=== PATIENT | female | born 1985 | race Caucasian/White ===

== ENCOUNTER 2020-06-16 09:22 | Emergency (ER) | payer BC, SELFPAY ==
--- NOTE | ~2020-06-16 | US_ITS ---
EXAMINATION: US OB <= 14 weeks fetus EXAM DATE: 06/16/2020 10:58 INDICATION: and low back pain. 1st trimester. TECHNIQUE: Pelvic obstetrical transabdominal sonogram was performed by a technologist. There are mu ltiple grayscale and Doppler images available for interpretation. There are no earlier studies of th is gestation for comparison. FINDINGS: Uterus measures 9.3 x 9.0 x 7.3 cm. There is intrauterine gestation sac. pole with heart rate confirmed at 167 beats per minute. The 2.8 cm crown-rump length corresponds to estimated gestational age by ultrasound of 9 weeks 4 days, estimated date of confinement 01/15. Yolk sac is hang ntified. There is no sonographic evidence of subchorionic hemorrhage. The ovaries are not identif ied. Adnexal regions are unremarkable. IMPRESSION: Early live intrauterine gestation. Reviewed, dictated and finalized at location B.
[2020-06-16 09:36] VITALS: BP 142/84; PULSE 96; RESP 18; TEMP 36.3; O2SAT 100
--- NOTE | 2020-06-16 10:21 | ED.BACK ---
HPI - Back Pain/Injury General Chief Complaint: Back Pain/Injury Stated Complaint: Severe back pain - 9wks Time Seen by Provider: 06/16/20 10:06 Source: patient Mode of arrival: ambulatory Limitations: no limitations History of Present Illness HPI Narrative: This is a 35-year-old G2, P1, about 9 weeks by LMP that presents the emergency department for right-sided mid back pain since last night. No known injury or trauma. Reports the pain is constant and sharp in nature. It is worse with movement and relieved with rest. She took Tylenol this morning prior to arrival. She did note some pelvic cramping last night as well. Her OB is Dr. Holloway. She has not seen her yet this . She has been having trouble with morning sickness this . Denies fever, abdominal pain, dysuria, hematuria, or vaginal bleeding. Related Data Home Medications Medication Instructions Recorded Confirmed PNV cmb#95-ferrous fumarate-FA tablet PO 06/16/20 [] ascorbate bikifod-jqggozht-sdl mg PO 06/16/20 [Vit C(ascorb.calcium)(mv-mins)] folic acid 0.8 mg PO DAILY 06/16/20 06/16/20 levothyroxine 06/16/20 Allergies Allergy/AdvReac Type Severity Reaction Status Date / Time sumatriptan Allergy Intermediate Unknown Verified 06/16/20 10:13 Review of Systems Review of Systems: Narrative: CONSTITUTIONAL: Denies fever GASTROINTESTINAL: Reports nausea and vomiting. Denies abdominal pain GENITOURINARY: Denies dysuria or hematuria. MUSCULOSKELETAL: Reports back pain, joint pain, and myalgia. NEUROLOGIC: Denies numbness, or weakness. All systems reviewed & are unremarkable except as noted in HPI and below PMFSH Past Medical History Medical History (Updated 06/16/20 @ 11:50 by Puja Cochran PA-C) History of hypothyroidism Social History Social History (Updated 06/16/20 @ 10:22 by Puja Cochran PA-C) Smoking status: Never smoker Substance use: never Exam Narrative: Exam Narrative: GENERAL: Well-appearing, well-nourished, and in no acute distress. HEAD: Normocephalic, atraumatic. EYES: EOMI. CHEST: Clear to auscultation. No respiratory distress. No wheezes rales or rhonchi HEART: Regular rate and rhythm. No murmur heard. Normal peripheral pulses. ABDOMEN: Soft, nontender, nondistended, normal active bowel sounds. No CVA tenderness BACK: Tender to palpation of right latissimus dorsi musculature EXTREMITIES: Normal range of motion. No edema. SKIN: Warm, dry, no rash. NEURO: No focal deficits. Alert and oriented x3. PSYCH: Normal mood and affect Course Consultations Consultation #1: Spoke with Dr. Holloway about patient and work-up. Patient is to follow-up in clinic. Date: 06/16/20 Time: 11:49 Vital Signs Vital signs: Vital Signs Temperature 97.4 F L 06/16/20 09:36 Pulse Rate 96 06/16/20 09:36 Respiratory Rate 18 06/16/20 09:36 Blood Pressure 142/84 H 06/16/20 09:36 Pulse Oximetry 100 06/16/20 09:36 Temperature 97.4 F L 06/16/20 09:36 Pulse Rate 96 06/16/20 09:36 Respiratory Rate 18 06/16/20 09:36 Blood Pressure 142/84 H 06/16/20 09:36 Pulse Oximetry 100 06/16/20 09:36 MDM - Back Pain/Injury MDM Narrative Medical decision making narrative: Patient presents to the emergency department for right-sided back pain since last night. No known injury or trauma. Patient is tender to palpation of musculature in the area. Pain is worse with movement. It does seem more musculoskeletal in nature. CBC with mild leukocytosis to 10.7. Hemoglobin is normal. Metabolic panel is without acute findings. UA with 1+ leuk esterase, 4-6 white blood cells, and 3+ bacteria. Also with moderate squamous epithelial cells. This will be sent for a culture. Suspect that this is not a clean-catch. ultrasound shows an early live intrauterine gestation. Patient denied any vaginal bleeding or abnormal discharge. Patient was also reporting some trouble with morning sickness. G
[2020-06-16] MEDS: diphenhydrAMINE HCl INJ 50 MG/ML VIAL 25 MG IV PUSH (10:59)
[2020-06-16] MEDS: SODIUM CHLORIDE 0.9% IV 1,000 ML 999 ML IV CONT (10:59)
[2020-06-16] MEDS: METOCLOPRAMIDE HCL INJ 10 MG/2 ML VIAL IV PUSH (11:00)
[2020-06-16 11:04] LABS: Basophils Percent Auto 0.2 % (0.2-1.2); Eosinophils Absolute Auto 0.1 K/mm3 (0-0.3); Hematocrit 37.3 % (37.0-47.0); Hemoglobin 13.4 g/dL (12.0-15.0); Immature Granulocyte Absolute 0.03 K/mm3 (0.00-0.031); Immature Granulocyte Percent A 0.3 % (0-0.5); Lymphocytes Absolute Auto 1.43 K/mm3 (0.9-3.2); Lymphocytes Percent Auto 13.4 % (18.3-44.2); Mean Corpuscular HGB Conc 35.9 g/dl (32-36); Mean Corpuscular Hemoglobin 31.4 pg (26-34); Mean Corpuscular Volume 87.4 fl (80-100); Mean Platelet Volume 10.7 fl (7.4-10.4); Monocytes Absolute Auto 0.7 K/mm3 (0.1-0.6); Monocytes Percent Auto 6.3 % (2.6-8.5); Neutrophils Absolute Auto 8.4 K/mm3 (1.3-6.7); Neutrophils Percent Auto 78.8 % (45.5-73.1); Platelet Count Result 296 k/mm3 (150-375); Red Blood Count 4.27 M/mm3 (4.2-5.4); Red Cell Distribution Width 12.3 % (11.5-14.5); White Blood Count 10.7 K/mm3 (4.5-10.0)
[2020-06-16 11:09] LABS: Add Urine Microscopic? YES; Appearance Urine Cloudy (Clear); Bacteria Urine 3+ /hpf; Bilirubin Urine Negative (Negative); Blood Urine Negative (Negative); Color Urine Yellow (Yellow); Glucose Urine UA Negative (Negative); Ketones Urine Negative (Negative); Leukocyte Esterase Ur 1+ LEU/UL (Negative); Mucus Urine Rare /lpf; Nitrate Urine Negative (Negative); Protein Urine Negative (Negative); RBC Urine 0-2 /hpf (0-2); Specific Grav Ur 1.016 (1.001-1.035); Squamous Epithelial Cell Urine Moderate /hpf (Few); Urobilinogen Urine Negative mg/dL (<2.0)
[2020-06-16 11:18] LABS: Alanine Aminotransferase 18 U/L (4-35); Albumin Level 4.8 g/dL (3.5-5.1); Alkaline Phosphatase 81 U/L (38-126); Anion Gap 10 mmol/L (8-16); Aspartate Amino Transferase 26 U/L (14-36); Bilirubin,Total 0.3 mg/dL (0.2-1.3); Blood Urea Nitrogen 6 mg/dL (7-17); Calcium 9.9 mg/dL (8.4-10.2); Carbon Dioxide 22 mmol/L (22-30); Chloride 102 mmol/L (98-107); Estimated CRCL calculation 128 ml/min; Estimated Glomerular Filt Rate > 60; Glucose 84 mg/dL (65-105); Potassium 3.8 mmol/L (3.4-5.0); Sodium 134 mmol/L (137-145)
== END 2020-06-16 12:04 | disposition home or self-care (01) ==
PROVIDERS: Physician Assistant; Emergency Provider Emergency Medicine; PCP Internal Medicine
DX: O26.891 Other specified pregnancy related conditions, first trimester (principal); M54.6 Pain in thoracic spine; O99.281 Endocrine, nutritional and metabolic diseases complicating pregnancy, first trimester; E03.9 Hypothyroidism, unspecified; Z3A.09 9 weeks gestation of pregnancy
CPT/HCPCS: 36415; 76801; 80053; 81001; 81025; 84702; 85025; 87077; 87086; 87088; 96361; 96374; 96375; 99284; J1200; J2765; J7030

== ENCOUNTER 2021-01-08 14:26 | Outpatient (RCR) | payer BC, SELFPAY ==
[2020-12-04 17:38] LABS: Fetal Fibronectin Negative
[2020-12-04 17:45] VITALS: BP 106/72; PULSE 78
[2020-12-11 15:27] VITALS: BP 111/69; PULSE 86
[2020-12-18 11:12] VITALS: BP 114/66; PULSE 91
[2020-12-25 10:43] LABS: Hematocrit 37.5 % (37.0-47.0); Hemoglobin 12.9 g/dL (12.0-15.0); Mean Corpuscular HGB Conc 34.4 g/dl (32-36); Mean Corpuscular Hemoglobin 30.1 pg (26-34); Mean Corpuscular Volume 87.6 fl (80-100); Mean Platelet Volume 11.3 fl (7.4-10.4); Platelet Count Result 214 k/mm3 (150-375); Red Blood Count 4.28 M/mm3 (4.2-5.4); Red Cell Distribution Width 12.4 % (11.5-14.5); White Blood Count 9.7 K/mm3 (4.5-10.0)
[2020-12-25 10:57] LABS: Alanine Aminotransferase 20 U/L (4-35); Albumin Level 3.6 g/dL (3.5-5.1); Alkaline Phosphatase 144 U/L (38-126); Anion Gap 6 mmol/L (8-16); Aspartate Amino Transferase 28 U/L (14-36); Bilirubin,Total 0.2 mg/dL (0.2-1.3); Blood Urea Nitrogen 13 mg/dL (7-17); Calcium 9.2 mg/dL (8.4-10.2); Carbon Dioxide 23 mmol/L (22-30); Chloride 105 mmol/L (98-107); Estimated Glomerular Filt Rate > 60; Glucose 100 mg/dL (65-105); Lactate Dehydrogenase 338 U/L (313-618); Potassium 4.1 mmol/L (3.4-5.0); Sodium 134 mmol/L (137-145); Uric Acid 4.2 mg/dL (2.5-7.5)
[2020-12-25 11:17] VITALS: BP 119/77; PULSE 102
--- NOTE | 2020-12-25 11:57 | PC.NURSE ---
Dr. Chung informed of reactive NST, BP, and lab results.
[2021-01-01 14:53] VITALS: BP 122/71; PULSE 86
[2021-01-08 14:56] VITALS: BP 108/77; PULSE 80
== END 2021-01-28 07:48 | disposition home or self-care (01) ==
LOC: ANHOBOP 14:26
PROVIDERS: Student in an Organized Health Care Education/Training Program; PCP Internal Medicine; Visit Provider Obstetrics & Gynecology
DX: O24.419 Gestational diabetes mellitus in pregnancy, unspecified control (principal); Z3A.33 33 weeks gestation of pregnancy; Z3A.34 34 weeks gestation of pregnancy; Z3A.35 35 weeks gestation of pregnancy; Z3A.36 36 weeks gestation of pregnancy; Z3A.37 37 weeks gestation of pregnancy; Z3A.38 38 weeks gestation of pregnancy
CPT/HCPCS: 36415; 59025; 80053; 82731; 83615; 84443; 84550; 85027

== ENCOUNTER 2021-03-31 13:36 | Outpatient (CLI) | payer BC, SELFPAY ==
--- NOTE | 2021-03-31 | ECHO_ITS ---
Patient Info Name: Gissell Jordan Age: 36 years : 1985 Gender: Female Ht: 63 in Wt: 162 lbs BSA: 1.83 m2 HR: 73 bpm BP: 124 / 90 mmHg Heart Rhythm: Sinus Rhythm Technical Quality: Good Exam Date: 03/31/2021 2:13 PM Exam Location: [facility] Patient Status: Outpatient Admit Date: 03/31/2021 Staff Ordering Physician: DaysiShima MD Vaccine Specialist: Mukul Grant RDCS, RT Attending Provider: MikaylaShima MD Referring Physician: Daysi SHOOK; Exam Type: CA echo doppler color flow Study Info Indications Z82.79 - Family history of other congenital malformations, deformations and chromosomal abnormalities Complete two-dimensional, color flow and Doppler transthoracic echocardiogram is performed. Summary 1. Complete two-dimensional, color flow and Doppler transthoracic echocardiogram is performed. 2. Left ventricular chamber size, wall thickness, systolic and diastolic function are normal with no regional wall motion abnormalities with an estimated ejection fraction of 60-65%. 3. The aortic valve is trileaflet. 4. No significant valve. 5. Normal sinus rhythm. Left Ventricle Left ventricular chamber dimension is normal. Left ventricular systolic function is normal, estimated at 60-65%. There is no increased left ventricular wall thickness. Left ventricular septal wall motion is normal. The left ventricular diastolic function is normal. Left ventricular chamber size, wall thickness, systolic and diastolic function are normal with no regional wall motion abnormalities with an estimated ejection fraction of 60-65%. Right Ventricle Right ventricular chamber dimension is normal. Right ventricular systolic function is normal. Left Atria Left atrial chamber dimension is normal. Right Atria Right atrial chamber dimension is normal. Aortic Valve The aortic valve is trileaflet. There is no aortic valve sclerosis. There is no aortic valve stenosis. There is no aortic valve regurgitation. Pulmonic Valve The pulmonic valve is normal. There is no pulmonic valve stenosis. There is trace pulmonic regurgitation. Mitral Valve The mitral valve has normal leaflets. There is no mitral valve stenosis. There is no mitral valve regurgitation. Tricuspid Valve The tricuspid valve leaflets are normal. There is no significant tricuspid valve stenosis. There is trace tricuspid valve regurgitation. No pulmonary hypertension, estimated pulmonary arterial systolic pressure is Empty. Pericardium/Pleural The pericardium appears normal. There is no pericardial effusion. Inferior Vena Cava Normal inferior vena cava with >50% collapse upon inspiration consistent with Empty right atrial pressure, Empty. Aorta The aortic root size at the sinus of Valsalva is normal. The prox ascending aorta size is normal. Left Ventricular Outflow Tract Name Value Normal LVOT 2D LVOT Diameter 2.0 cm LVOT Doppler LVOT Peak Gradient 4 mmHg LVOT Mean Gradient 3 mmHg LVOT VTI 21 cm LVO
== END 2021-03-31 13:37 | disposition home or self-care (01) ==
PROVIDERS: PCP Internal Medicine; Visit Provider Internal Medicine
DX: Z82.79 Family history of other congenital malformations, deformations and chromosomal abnormalities (principal)
CPT/HCPCS: 93306

== ENCOUNTER 2021-10-20 03:08 | Observation (INO) | payer BC, SELFPAY ==
[2021-10-20] VITALS (30 sets, daily range): BP systolic 105–132; BP diastolic 59–84; PULSE 72–109; RESP 14–20; TEMP 36–37.1; O2SAT 79–100; BMI 30.6
--- NOTE | ~2021-10-20 | CT_ITS ---
EXAMINATION: CT abdomen pelvis w con EXAM DATE: 10/20/2021 04:31 INDICATION: RLQ Pain Started Yesterday. Worse This Morning. TECHNIQUE: Spiral CT of the abdomen and pelvis was performed following intravenous injection of 100 m L Omnipaque 350. Axial, coronal and sagittal images of the abdomen and pelvis were reviewed. The do se-length product (DLP) for this examination was 573.33 mGy-cm. The exposure was tailored according to patient size (auto mA exposure control), and iterative reconstruction (ASIR) was used as additiona l dose reduction technique. There is no prior study for comparison. FINDINGS: Appendix tip is fluid-filled and dilated up to 11 mm, appearance is consistent with early a cute appendicitis. This has been indicated on axial image 142. No abscess The liver, spleen, adrenal glands and pancreas are unremarkable. Gallbladder is unremarkable. No biliary obstruction. Portal and splenic veins are patent. Kidneys enhance symmetrically. There is no hydronephrosis. The [place] is retroverted and morphologically normal. The bladder is unremarkable. There is no retroperit rios or pelvic lymphadenopathy. The stomach and small bowel are unremarkable. There is expected amount of colonic stool. No free i ntraperitoneal gas. The heart is normal in size. There are no pericardial or pleural effusions. T he lung bases are unremarkable. There are no osteoblastic or osteolytic lesions identified. IMPRESSION: Early acute tip appendicitis. Reviewed, dictated and finalized at location A. 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
--- NOTE | 2021-10-20 03:26 | ED.GENADULT ---
HPI - General Adult General Chief complaint: Abdominal Pain Stated complaint: ABD pain and nausea Time Seen by Provider: 10/20/21 03:14 History of Present Illness HPI narrative: Patient is a 36-year-old female who presents the emergency department with chief complaint of right lower quadrant pain. The patient reports that this evening she woke up and started having pain in the right lower quadrant the patient states the pain is worse with movement and improved with rest. Patient denies nausea vomiting denies fever denies dysuria denies vaginal discharge or bleeding. The patient reports that her last menstrual period was September 25 patient reports the pain that she is experiencing is sharp patient states she has no prior abdominal surgical history Related Data Home Medications Medication Instructions Recorded Confirmed levothyroxine 25 mcg tablet 25 mcg PO DAILY 06/26/20 07/20/21 sertraline 100 mg tablet 200 mg PO DAILY tablet 02/26/21 07/20/21 cholecalciferol (vitamin D3) 125 125 mcg PO DAILY 07/09/21 07/20/21 mcg (5,000 unit) capsule fingolimod 0.5 mg capsule 0.5 mg PO DAILY 07/09/21 07/20/21 multivitamin 1 tablet PO DAILY 07/09/21 07/20/21 trazodone 50 mg tablet 50 mg PO QHS PRN MDD per pt anxiety 07/09/21 07/20/21 venlafaxine 75 mg capsule,extended 75 mg PO DAILY 07/09/21 07/20/21 release 24 hr Allergies Allergy/AdvReac Type Severity Reaction Status Date / Time sumatriptan Allergy Intermediate Other Verified 10/20/21 03:37 rizatriptan [From [facility]] Allergy Mild SOB Verified 10/20/21 03:37 Review of Systems Review of Systems: A 10 system review of systems was completed on the patient and is negative except for what is stated in the HPI. Nursing and ancillary documentation was reviewed. [facility] Past Medical History Medical History Anxiety 2011 Depression 1999 History of gestational diabetes History of hypothyroidism HPV in female 2009 Hypothyroid Migraine Multiple sclerosis Upper airway resistance syndrome Vaginal delivery x2 Surgical History Surgical History No significant past surgical history Family History Family History Mother Hypertension Cerebrovascular accident Social History Social History Smoking status: Never smoker Alcohol intake: unknown Substance use: never Exam Narrative: GENERAL: Well-appearing, well-nourished, and in no acute distress. HEAD: Normocephalic, atraumatic. EYES: PERRLA and EOMI. ENT: Nares clear, no rhinorrhea or epistaxis. Mucous membranes moist. NECK: Supple. CHEST: Clear to auscultation. No respiratory distress. HEART: Regular rate and rhythm. No murmur heard. Normal peripheral pulses. ABDOMEN: Soft, tender to palpation the right lower quadrant, nondistended, normal active bowel sounds. EXTREMITIES: Normal range of motion. No edema. SKIN: Warm, dry, no rash. NEURO: No focal deficits. Alert and oriented x3. PSYCH: Normal mood and affect. Course Vital Signs Vital signs: Vital Signs Temperature 37.1 C 10/20/21 03:18 Pulse Rate 109 H 10/20/21 03:18 Respiratory Rate 16 10/20/21 03:18 Blood Pressure 132/81 10/20/21 03:18 Pulse Oximetry 97 10/20/21 03:18 Temperature 37.1 C 10/20/21 03:18 Pulse Rate 106 H 10/20/21 05:16 Respiratory Rate 20 10/20/21 05:16 Blood Pressure 130/84 10/20/21 05:16 Pulse Oximetry 100 10/20/21 05:16 Medical Decision Making Vital Signs Vital Signs: Vital Signs Temperature 37.1 C 10/20/21 03:18 Pulse Rate 109 H 10/20/21 03:18 Respiratory Rate 16 10/20/21 03:18 Blood Pressure 132/81 10/20/21 03:18 Pulse Oximetry 97 10/20/21 03:18 Temperature 37.1 C 10/20/21 03:18 Pulse Rate 106 H 10/20/21 05:16 Respiratory R
[2021-10-20] MEDS: SODIUM CHLORIDE 0.9% IV 1,000 ML 999 ML IV CONT (03:47)
[2021-10-20] MEDS: MORPHINE SULFATE (*CRX) 4 MG/ML INJ IV PUSH ×3 (03:48→08:40)
[2021-10-20] MEDS: ONDANSETRON INJ 4 MG/2 ML VIAL IV PUSH ×2 (03:48→13:17)
[2021-10-20 03:52] LABS: Add Urine Microscopic? YES; Appearance Urine Clear (Clear); Bacteria Urine 1+ /hpf; Bilirubin Urine Negative (Negative); Blood Urine 1+ (Negative); Color Urine Yellow (Yellow); Glucose Urine UA Negative (Negative); Ketones Urine Negative (Negative); Leukocyte Esterase Ur Negative LEU/UL (Negative); Mucus Urine Rare /lpf; Nitrate Urine Negative (Negative); Protein Urine Negative (Negative); RBC Urine 0-2 /hpf (0-2); Specific Grav Ur 1.019 (1.001-1.035); Squamous Epithelial Cell Urine Many /hpf (Few); Urobilinogen Urine Negative mg/dL (<2.0); WBC Urine 0-3 /hpf
[2021-10-20 03:53] LABS: Basophils Percent Auto 0.1 % (0.2-1.2); Eosinophils Absolute Auto 0.2 K/mm3 (0-0.3); Eosinophils Percent Auto 1.9 % (0-4.4); Hematocrit 38.4 % (37.0-47.0); Hemoglobin 13.1 g/dL (12.0-15.0); Immature Granulocyte Percent A 1.1 % (0-0.5); Lymphocytes Absolute Auto 0.41 K/mm3 (0.9-3.2); Lymphocytes Percent Auto 4.6 % (18.3-44.2); Mean Corpuscular HGB Conc 34.1 g/dl (32-36); Mean Corpuscular Hemoglobin 30.7 pg (26-34); Mean Corpuscular Volume 89.9 fl (80-100); Mean Platelet Volume 10.6 fl (7.4-10.4); Neutrophils Absolute Auto 7.3 K/mm3 (1.3-6.7); Neutrophils Percent Auto 81.3 % (45.5-73.1); Platelet Count Result 261 k/mm3 (150-375); Red Blood Count 4.27 M/mm3 (4.2-5.4); Red Cell Distribution Width 12.9 % (11.5-14.5)
[2021-10-20 04:03] LABS: Alanine Aminotransferase 33 U/L (4-35); Albumin Level 4.7 g/dL (3.5-5.1); Alkaline Phosphatase 92 U/L (38-126); Anion Gap 10 mmol/L (8-16); Aspartate Amino Transferase 29 U/L (14-36); Bilirubin,Total 0.4 mg/dL (0.2-1.3); Blood Urea Nitrogen 11 mg/dL (7-17); Calcium 9.6 mg/dL (8.4-10.2); Carbon Dioxide 27 mmol/L (22-30); Chloride 101 mmol/L (98-107); Estimated CRCL calculation 110 ml/min; Estimated Glomerular Filt Rate > 60; Glucose 106 mg/dL (65-110); Lipase 288 U/L (23-300); Potassium 3.4 mmol/L (3.4-5.0); Sodium 138 mmol/L (137-145)
[2021-10-20] MEDS: SODIUM CHLORIDE 0.9% IV 1,000 ML 125 ML IV CONT (06:09)
--- NOTE | 2021-10-20 09:08 | WPDANESEPPF ---
Anes - Initial Pre Proc Eval Procedure: Operation Date: 10/20/21 13:00 Proposed Procedures p Laparoscopic Appendectomy - Elie Mesa DO Date/Time: 10/20/21 09:08 Surgeon: Elie Mesa DO Pre Op Diagnosis: acute appendicites,covid positive on 116 Patient Data Age: 36 Gender: F Height: 1.6 m Weight: 77 kg Last Vital Signs Temp 37.1 C 10/20/21 03:18 Pulse 92 10/20/21 09:05 Resp 18 10/20/21 09:05 BP 120/76 10/20/21 09:05 Pulse Ox 99 10/20/21 09:05 Allergies Allergy/AdvReac Type Severity Reaction Status Date / Time sumatriptan Allergy Intermediate Other Verified 10/20/21 03:37 rizatriptan [From [facility]] Allergy Mild SOB Verified 10/20/21 03:37 Home Medications Medication Instructions Recorded Confirmed Type levothyroxine 25 mcg tablet 25 mcg PO DAILY 06/26/20 07/20/21 History sertraline 100 mg tablet 200 mg PO DAILY tablet 02/26/21 07/20/21 History cholecalciferol (vitamin D3) 125 125 mcg PO DAILY 07/09/21 07/20/21 History mcg (5,000 unit) capsule fingolimod 0.5 mg capsule 0.5 mg PO DAILY 07/09/21 07/20/21 History multivitamin 1 tablet PO DAILY 07/09/21 07/20/21 History trazodone 50 mg tablet 50 mg PO QHS PRN MDD per pt anxiety 07/09/21 07/20/21 History venlafaxine 75 mg capsule,extended 75 mg PO DAILY 07/09/21 07/20/21 History release 24 hr Laboratory Tests 10/20/21 10/20/21 10/20/21 03:41 03:41 03:41 WBC 9.0 K/mm3 K/mm3 (4.5-10.0) RBC 4.27 M/mm3 M/mm3 (4.2-5.4) Hgb 13.1 g/dL g/dL (12.0-15.0) Hct 38.4 % % (37.0-47.0) MCV 89.9 fl fl (80-100) MCH 30.7 pg pg (26-34) MCHC 34.1 g/dl g/dl (32-36) RDW 12.9 % % (11.5-14.5) Plt Count 261 k/mm3 k/mm3 (150-375) MPV 10.6 fl H fl (7.4-10.4) Immature Gran % (Auto) 1.1 % H % (0-0.5) Neut % (Auto) 81.3 % H % (45.5-73.1) Lymph % (Auto) 4.6 % L % (18.3-44.2) [place] % (Auto) 11.0 % H % (2.6-8.5) Eos % (Auto) 1.9 % % (0-4.4) Baso % (Auto) 0.1 % L % (0.2-1.2) Lymph # (Auto) 0.41 K/mm3 L K/mm3 (0.9-3.2) [place] # (Auto) 1.0 K/mm3 H K/mm3 (0.1-0.6) Eos # (Auto) 0.2 K/mm3 K/mm3 (0-0.3) Baso # (Auto) 0.0 K/mm3 K/mm3 (0.0-0.1) Abs Immat Gran (auto) 0.10 K/mm3 H K/mm3 (0.00-0.031) Absolute Neuts (auto) 7.3 K/mm3 H K/mm3 (1.3-6.7) Absolute Nucleated RBC 0.0 K/mm3 K/mm3 (0.0-0.012) Nucleated RBC % 0.0 % % (0.0-0.2) Sodium 138 mmol/L mmol/L (137-145) Potassium 3.4 mmol/L mmol/L (3.4-5.0) Chloride 101 mmol/L mmol/L (98-107) Carbon Dioxide 27 mmol/L mmol/L (22-30) Anion Gap 10 mmol/L mmol/L (8-16) BUN 11 mg/dL mg/dL (7-17) Creatinine 0.60 mg/dL L mg/dL (0.7-1.0) Estim Creat Clear Calc 110 ml/min ml/min Estimated GFR > 60 (59 - ) Glucose 106 mg/dL mg/dL (65-110) Calcium 9.6 mg/dL mg/dL (8.4-10.2) Total Bilirubin 0.4 mg/dL mg/dL (0.2-1.3) AST 29 U/L U/L (14-36) ALT 33 U/L U/L (4-35) Alkaline Phosphatase 92 U/L U/L (38-126) Total Protein 7.0 g/dL g/dL (6.3-8.2) Albumin 4.7 g/dL g/dL (3.5-5.1) Lipase 288 U/L U/L (23-300) Urine Color Yellow (Yellow) Urine Appearance Clear (Clear) Urine pH 5.0 (5.0-9.0) Ur Specific [place] 1.019 (1.001-1.035) Urine Protein Negative mg/dL mg/dL (Negative) Urine Glucose (UA) Negative mg/dL mg/dL (Negative) Urine Ketones Negative mg/dL mg/dL (Negative) Ur Blood (Man) 1+ H (Negative) Urine Nitrate Negative (Negative) Urine Bilirubin Negative (Negative) Urine Urobilinogen Negative mg/dL mg/dL (<2.0)
--- NOTE | 2021-10-20 09:28 | PM.IMHP ---
H&P: HPI History of Present Illness Date/Time: 10/20/21 09:28 Chief Complaint: Right lower quadrant abdominal pain Narrative: This is a 36-year-old female with a history of multiple sclerosis on immunosuppressant medication, who presented to the emergency department with right lower quadrant abdominal pain. She reports testing positive for COVID-19 as an outpatient at an urgent care on 10/11/2021. Her symptoms started on 10/09/2021. She had cough, shortness of breath, fever, congestion, and sore throat. She has received the COVID vaccination and received the Lumatic booster in June of 2021. Her PCP prescribed her a 5-day course of molnupiravir, and the patient reportedly has improved over the past week. She reports only having some generalized weakness and mild shortness of breath with activity at this time. She has now been afebrile for days. Yesterday, in the early afternoon she noticed a gradual onset of mild periumbilical pain. This remained constant throughout the day and progressively worsened. She woke up in her sleep around 2:00 a.m. this morning due to severe abdominal pain that had localized in the right lower quadrant. She reports the pain felt sharp. Due to the unrelenting pain, she presented to the ER for evaluation. Labs showed a normal white blood cell count with a left shift. CT scan of the abdomen and pelvis suggested acute tip appendicitis. Bedside urine negative. Our service was contacted by the ED physician for evaluation of acute appendicitis. The patient is now seen in the ED. She is still having right lower quadrant abdominal pain with minimal relief from the IV morphine. She reports the Morphine helped slightly for about 30 minutes, but she is currently bent over on the stretcher appearing uncomfortable. She denies nausea or vomiting. No other complaints at this time. No history of abdominal surgery in the past. Review of Systems Review of Systems: All systems reviewed & are unremarkable except as noted in HPI and below Constitutional: Constitutional: Reports as per HPI, Denies chills, Denies fatigue and Denies fever(s) ENT: Reports system reviewed and no additional complaints, except as documented and Reports Normal hearing present Cardiovascular: Cardiovascular: Reports no additional cardiovascular complaints, Denies chest pain and Denies leg edema Respiratory: Respiratory: Reports no additional respiratory complaints, Denies cough, Denies dyspnea and Reports dyspnea on exertion (mild resolving SOB with activity following COVID) Gastrointestinal: Gastrointestinal: Reports as per HPI, Reports no additional gastrointestinal complaints, Reports abdominal pain (RLQ), Reports bloating, Denies hematochezia, Denies change in bowel habits, Denies tenesmus, Denies diarrhea, Denies nausea and Denies vomiting Genitourinary: Genitourinary: Denies hematuria and Denies dysuria Musculoskeletal: Musculoskeletal: Denies joint swelling Neurologic: Reports system reviewed and no additional complaints, except as documented, Denies dizziness, Denies focal weakness, Denies numbness and Denies tingling Psychiatric: Psychiatric: Reports anxiety (hx of anxiety on pharmacologic treatment) and Reports depression (hx of depression on pharmacologic treatment) Allergic/Immunologic: Allergic/Immunologic: Reports other (on fingolimod for M.S. last taken yesterday morning) [facility] Past Medical History Medical History (Updated 10/20/21 @ 10:40 by RADHA Acosta) Anxiety 2012 Depression 1999 History of gestational diabetes History of hypothyroidism HPV in female 2009 Hypothyroid Migraine Multiple sclerosis Upper airway resistance syndrome Vaginal delivery x2 Surgical History Surgical History No significant past surgical history Family History Family History Mother Hypertension Cere
--- NOTE | 2021-10-20 09:40 | PC.NURSE ---
This patient, Gissell Loaiza, was admitted to [facility] S[facility] Room 316-01. Patient/family oriented to hospital policies and general routines including ID bracelet, bed and alarms, visiting hours, pain management, procedures, bathroom and other care routines, personal items, smoking policy, room service/diet, and visiting hours.Report received from Vikki BABCOCK. Information on how to activate the Rapid Response Team has been discussed. Patient/Family are encouraged to report perceived risks to care and to ask questions if they do not understand what they are told or what they should do.
[2021-10-20] MEDS: LACTATED RINGERS 1,000 ML 30 ML IV CONT ×2 (12:30→14:26)
--- NOTE | 2021-10-20 13:10 | WPDHPUPDATE1 ---
History and Physical Update Update Date/Time: 10/20/21 13:10 History and Physical has been reviewed, including an updated exam of the patient. There are NO changes in the patient's condition. Risks, benefits, and alternatives have been discussed and questions answered. Patient agrees to proceed with procedure.
[2021-10-20] MEDS: fentaNYL CITRATE INJ (*CRX) 100 MCG/2 ML VIAL 50 MCG IV PUSH (13:18)
[2021-10-20] MEDS: BUPIVACAINE/EPINEPHRINE 0.5% 30 ML VIAL INFILTRATE (14:06)
--- NOTE | 2021-10-20 14:21 | W.PM.PROC2 ---
Procedure Note - Detailed Date of Procedure 10/20/21 Pre-op Diagnosis acute appendicitis Post-op Diagnosis same Procedure Performed Laparoscopic appendectomy Surgeon Elie Mesa, DO Anesthesia general and local (0.5% bupivicaine with epinephrine) Indications This is a 36-year-old woman who began experiencing right lower quadrant pain overnight. Pain progressed throughout the morning and she presented to the emergency department early this morning. CT showed evidence of acute appendicitis. Discussions were made with the patient about treatment options and decision was made to proceed with laparoscopic appendectomy, possible open. Findings Laparoscopic appendectomy was performed. The appendix appeared dilated and inflamed, but there was no evidence of perforation or abscess. The base of the appendix appeared healthy and viable. The appendix was removed and sent to the lab for pathology. Description of Procedure Procedure as well as risks, benefits, and alternatives were explained to the patient. The patient agreed to proceed. Written consent was obtained and placed in chart prior to procedure. The patient was brought back to surgical suite. She was placed supine on operating table. Time-out was done to confirm the patient and procedure. The patient was then intubated by the Anesthesia Department. Her abdomen was prepped and draped in sterile fashion using chlorhexidine prep. A 5 mm incision was made just to the left of the patient's umbilicus and a 5 mm Optiview trocar was advanced through the abdominal layers under direct visualization. Once inside the peritoneal cavity, carbon dioxide insufflation was used to create a pneumoperitoneum. The camera was inserted and the abdomen was inspected. No immediate abnormalities were identified. The patient was then placed in slight Trendelenburg position and rotated to the left. A 5 mm incision was made in the suprapubic region in midline and a 5 mm trocar was inserted under direct visualization. A 12 mm incision was made in the left lower quadrant and a 12 mm trocar was inserted under direct visualization. The right lower quadrant was carefully inspected. The cecum was identified and then this was traced back to the appendix. The appendix was identified and grasped at the mesoappendix and lifted anteriorly. Careful blunt dissection was carried out at the base of the appendix through the mesoappendix using a [place] grasper. An Endo-LUPILLO 45 mm blue load stapler was then advanced across the base of the appendix and clamped and fired. A white reload was then clamped across the mesoappendix and fired. This freed up our appendix completely. It was then placed in an EndoCatch bag and removed through the left lower quadrant port. The staple lines were then inspected. Hemostasis appeared adequate and the staple lines appeared secure. The area was then irrigated with sterile saline. The pelvis was then carefully inspected and irrigated with sterile saline as well and the remainder of the abdomen was carefully inspected. The patient was then flattened out in bed. One final inspection was made around the abdominal cavity and no other abnormalities were seen. The left lower quadrant port was removed and a Rush-Gaurang cone was used to approximate the fascia with an 0 Vicryl simple interrupted suture. The remaining ports were then removed under direct visualization. The camera was removed and the pneumoperitoneum was released. 0.5% bupivacaine with epinephrine was infiltrated locally around each of the incisions. The skin of the incisions was then approximated using 4-0 Monocryl subcuticular suture and Exofin glue was applied on top. The patient was then awakened from anesthesia, extubated, and transferred to Recovery. Estimated Blood Loss 5 Urine Output 300 Pathology yes (Appendix) Complications No immediate complications Condition stable Disposition floor
[2021-10-20] MEDS: fentaNYL CITRATE INJ (*CRX) 100 MCG/2 ML VIAL 25 MCG IV PUSH ×3 (14:42→15:02)
--- NOTE | 2021-10-20 15:15 | SUR.PHASEI ---
1515- ice pack across abdomen for comfort.
[2021-10-20] MEDS: oxyCODONE HCL (*CRX) 5 MG TAB IR PO (15:59)
--- NOTE | 2021-10-20 16:00 | PM.DS ---
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 She was found to have evidence of acute appendicitis on CT. She was admitted and started on IV antibiotics. She underwent laparoscopic appendectomy on 10/20/21. Surgery was uncomplicated and appendix did not appear perforated. She was returned to the surgical floor postop and diet and activity were advanced as tolerated. That evening, her pain was controlled, vitals stable, she was tolerating regular diet, and ambulating in halls. She was discharged on 10/20/21. Status at Discharge Functional status at discharge: independent ambulation Overall status at discharge: patient is progressing back to baseline Time Spent with Patient Time attestation: Total time spent providing and/or coordinating discharge services: Time spent: Less than 30 minutes Exam Narrative: Unchanged from preop except for postop incisions. DS: Data Data Completed and Pending Completed studies during hospitalization: Pending at discharge 10/20/21 13:58 Surgical [PTH] Routine Imaging Radiologist's impression: ITS Impressions Abdomen/Pelvis CT 10/20/21 07:29 IMPRESSION: Early acute tip appendicitis. Discharge Plan Discharge Attending physician on discharge: Elie Herrera Consulting providers: Donte Abel ; Laura Kingston Discharging Clinician: Elie Herrera Anticipated Discharge Date/Time: 10/20/21 17:00 Patient Disposition: Home, Self-Care Activity: other - see discharge instructions Diet: regular Wound Care Instructions: other - see discharge instructions Discharge Instructions: DISCHARGE INSTRUCTION SHEET FOR HERNIA, GALLBLADDER AND APPENDIX SURGERIES DR. HERRERA PATIENT TO TAKE HOME 1. May shower in 24 hours, no soaking in bath x 2weeks. 2. Call office for: Wound increasingly painful or bleeding Vomiting Fever of greater than 101 degrees 3. If no bowel movement for three days, take 1 oz. (30 ml) Milk of Magnesia or MiraLax 17g 1 to 2 times daily. 4. No heavy lifting > 10-15 pounds x weeks for hernia repairs and 2 weeks for laparoscopic cholecystectomy or appendectomy. 5. No driving for 3 days or while taking narcotic pain medications. 6. Ice to surgical site for 48 hours (30 min on, then 30 min off). 7. Up walking 10-30 minutes three times per day. 8. Resume previous home medications. 9. Follow-up 10-14 days in office for wound check or as previously scheduled. ([phone]) 10. Oral pain medications prescription to be sent to pharmacy. Take Tylenol 500mg every 6 hours and Ibuprofen 600mg every 6 hours for the first 2 days, then as needed. 11. NUTRITION: Start out by drinking fluids and increase your diet as tolerated. If you experience nausea, try dry toast, crackers, and 7-UP. If nausea or vomiting persists, contact your surgeon?s office. 12. Gallbladders-Low Fat Diet for 2 weeks (send care note of low fat diet) 13. Inguinal Hernias-wear scrotal support for 48 hours 14. Abdominal Hernias-if sent home with abdominal binder, wear for the first 2 weeks (may remove to shower or at night to sleep).
== END 2021-10-20 16:55 | disposition home or self-care (01) ==
LOC: ANHED 07:37 → ANH3MEDSUR 08:28
PROVIDERS: Admitting Provider Surgery; Emergency Provider Emergency Medicine; PCP Internal Medicine; Visit Provider Surgery
PROC: 0DTJ4ZZ Resection of Appendix, Percutaneous Endoscopic Approach (ICD-10-PCS; CPT 44970; principal; 2021-10-20 13:00)
DX: K35.30 Acute appendicitis with localized peritonitis, without perforation or gangrene (principal); D84.821 Immunodeficiency due to drugs; E03.9 Hypothyroidism, unspecified; F41.8 Other specified anxiety disorders; G35 Multiple sclerosis; Z79.899 Other long term (current) drug therapy; Z86.16 Personal history of COVID-19
CPT/HCPCS: 44970; 36415; 74177; 80053; 81001; 81025; 83690; 85025; 88304; 96361; 96365; 96375; 96376; 99285; A9270; G0378; J0330; J1100; J2270; J2405; J2543; J2704; J2710; J3010; J7030; J7120; Q9967

== ENCOUNTER 2021-10-23 09:55 | Emergency (ER) | payer BC, SELFPAY ==
--- NOTE | ~2021-10-23 | CT_ITS ---
EXAMINATION: CT abdomen pelvis w con DATE: 10/23/2021 11:21 INDICATION: Recent appendectomy. Worsening right upper quadrant pain TECHNIQUE: Computed tomography (CT) of the abdomen and pelvis was performed with 100 cc Omnipaque 350 intravenous contrast. The dose-length product was 786.16 mGy-cm. Automated exposure control and iter ative reconstruction technique were employed. COMPARISON: CT dated 10/20/2021 FINDINGS: Lung bases are unremarkable. Heart size normal. No significant pleural or pericardial effus ion. The liver, spleen, pancreas, adrenal glands and kidneys are unremarkable. Gallbladder is mildly diste nded. No secondary findings to suggest cholecystitis. Bowel gas pattern is nonobstructive. Status pos t cholecystectomy. No evidence for pelvic abscess. No free air. Small fat-containing umbilical hernia . No significant vascular abnormality. No lymphadenopathy. No acute osseous abnormality. IMPRESSION: 1. No acute abdominal abnormality. Reviewed, dictated and finalized at location B. R[employer]FT SINKING
[2021-10-23 09:54] VITALS: BP 143/95; PULSE 93; RESP 16; TEMP 36.7; O2SAT 100
[2021-10-23 10:23] LABS: Basophils Percent Auto 0.2 % (0.2-1.2); Eosinophils Absolute Auto 0.2 K/mm3 (0-0.3); Eosinophils Percent Auto 4.5 % (0-4.4); Hematocrit 38.3 % (37.0-47.0); Immature Granulocyte Absolute 0.05 K/mm3 (0.00-0.031); Lymphocytes Absolute Auto 0.58 K/mm3 (0.9-3.2); Lymphocytes Percent Auto 11.4 % (18.3-44.2); Mean Corpuscular HGB Conc 33.9 g/dl (32-36); Mean Corpuscular Hemoglobin 30.9 pg (26-34); Mean Platelet Volume 10.2 fl (7.4-10.4); Monocytes Absolute Auto 0.8 K/mm3 (0.1-0.6); Monocytes Percent Auto 16.5 % (2.6-8.5); Neutrophils Absolute Auto 3.4 K/mm3 (1.3-6.7); Neutrophils Percent Auto 66.4 % (45.5-73.1); Platelet Count Result 319 k/mm3 (150-375); Red Blood Count 4.21 M/mm3 (4.2-5.4); Red Cell Distribution Width 13.1 % (11.5-14.5); White Blood Count 5.1 K/mm3 (4.5-10.0)
[2021-10-23 10:26] LABS: Add Urine Microscopic? YES; Appearance Urine Clear (Clear); Bilirubin Urine Negative (Negative); Blood Urine 1+ (Negative); Color Urine Colorless (Yellow); Glucose Urine UA Negative (Negative); Ketones Urine Negative (Negative); Leukocyte Esterase Ur Negative LEU/UL (Negative); Nitrate Urine Negative (Negative); Protein Urine Negative (Negative); RBC Urine 0-2 /hpf (0-2); Squamous Epithelial Cell Urine Rare /hpf (Few); Urobilinogen Urine Negative mg/dL (<2.0); WBC Urine 0-3 /hpf
[2021-10-23 10:37] LABS: Alanine Aminotransferase 35 U/L (4-35); Albumin Level 4.8 g/dL (3.5-5.1); Alkaline Phosphatase 95 U/L (38-126); Anion Gap 6 mmol/L (8-16); Aspartate Amino Transferase 37 U/L (14-36); Bilirubin,Total 0.5 mg/dL (0.2-1.3); Blood Urea Nitrogen 9 mg/dL (7-17); Calcium 9.7 mg/dL (8.4-10.2); Carbon Dioxide 27 mmol/L (22-30); Chloride 107 mmol/L (98-107); Estimated CRCL calculation 108 ml/min; Estimated Glomerular Filt Rate > 60; Glucose 95 mg/dL (65-110); Lipase 273 U/L (23-300); Potassium 3.6 mmol/L (3.4-5.0); Sodium 140 mmol/L (137-145)
[2021-10-23 10:52] LABS: Specific Grav Ur 1.004 (1.001-1.035)
--- NOTE | 2021-10-23 10:59 | ED.ABDPAIN ---
HPI - Abdominal Pain General Chief Complaint: Abdominal Pain Stated Complaint: post-op pain Time Seen by Provider: 10/23/21 10:08 Source: patient Mode of arrival: wheelchair Limitations: no limitations History of Present Illness HPI narrative: This is a 36 year old female that presents to the ER for worsening abdominal pain present over the last 3 days. She underwent laparoscopic appendectomy on 10/[address] Mesa. Reports since she has had worsening mid abdominal pain. The pain is sharp and burning in nature. The pain worsened today which prompted her to be seen. She did have a bowel movement today. Denies fever, nausea, vomiting, dysuria, hematuria. Related Data Home Medications Medication Instructions Recorded Confirmed levothyroxine 25 mcg tablet 25 mcg PO DAILY 06/26/20 07/20/21 sertraline 100 mg tablet 200 mg PO DAILY tablet 02/26/21 07/20/21 cholecalciferol (vitamin D3) 125 125 mcg PO DAILY 07/09/21 07/20/21 mcg (5,000 unit) capsule fingolimod 0.5 mg capsule 0.5 mg PO DAILY 07/09/21 07/20/21 multivitamin 1 tablet PO DAILY 07/09/21 07/20/21 trazodone 50 mg tablet 50 mg PO QHS PRN MDD per pt anxiety 07/09/21 07/20/21 venlafaxine 75 mg capsule,extended 75 mg PO DAILY 07/09/21 07/20/21 release 24 hr Allergies Allergy/AdvReac Type Severity Reaction Status Date / Time sumatriptan Allergy Intermediate Other Verified 10/20/21 12:51 [facility]atriptan [From [facility]] Allergy Mild SOB Verified 10/20/21 12:51 Review of Systems Review of Systems: CONSTITUTIONAL: Denies fever GASTROINTESTINAL: Reports abdominal pain. Denies nausea, vomiting, or diarrhea. GENITOURINARY: Denies dysuria or hematuria. All systems reviewed & are unremarkable except as noted in HPI and below PMFSH Past Medical History Medical History (Updated 10/23/21 @ 14:07 by Puja Cochran PA-C) Anxiety 2011 Depression 1999 History of gestational diabetes History of hypothyroidism HPV in female 2009 Hypothyroid Migraine Multiple sclerosis Upper airway resistance syndrome Vaginal delivery x2 Surgical History Surgical History (Updated 10/23/21 @ 11:24 by Puja Cochran PA-C) History of appendectomy Family History Family History Mother Hypertension Cerebrovascular accident Social History Social History Smoking status: Never smoker Alcohol intake: never Substance use: never Additional living arrangements comments: Lives with her and two children. 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 HEAD: Normocephalic, atraumatic. EYES: EOMI. CHEST: Clear to auscultation. No respiratory distress. No wheezes rales or rhonchi HEART: Regular rate and rhythm. No murmur heard. Normal peripheral pulses. ABDOMEN: Soft, nondistended, normal active bowel sounds. Tender to palpation throughout the abdomen, particularly in the LLQ, without guarding. No CVA tenderness. Incisions are clean, dry and intact. No surrounding erythema or abnormal drainage EXTREMITIES: Normal range of motion. No edema. SKIN: Warm, dry, no rash. NEURO: No focal deficits. Alert and oriented x3. PSYCH: Normal mood and affect Course Consultations Consultation #1: Spoke with Dr. Sotomayor about patient and work-up. Recommends bowel regimen, rest and pain medication as needed. Patient to follow up in clinic. Date: 10/23/21 Time: 14:06 Vital Signs Vital signs: Vital Signs Temperature 98.1 F 10/23/21 09:54 Pulse Rate 93 10/23/21 09:54 Respiratory Rate 16 10/23/21 09:54 Blood Pressure 143/95 H 10/23/21 09:54 Pulse Oximetry 100 10/23/21 09:54 Temperature
[2021-10-23] MEDS: ONDANSETRON INJ 4 MG/2 ML VIAL IV PUSH (11:01)
[2021-10-23] MEDS: MORPHINE SULFATE (*CRX) 4 MG/ML INJ IV PUSH (11:01)
[2021-10-23 14:50] VITALS: BP 116/84; PULSE 91; RESP 16
== END 2021-10-23 14:50 | disposition home or self-care (01) ==
PROVIDERS: Emergency Provider Emergency Medicine; PCP Internal Medicine
DX: G89.18 Other acute postprocedural pain (principal); R10.9 Unspecified abdominal pain; F41.9 Anxiety disorder, unspecified; F32.A Depression, unspecified; E03.9 Hypothyroidism, unspecified; G35 Multiple sclerosis
CPT/HCPCS: 36415; 74177; 80053; 81001; 81025; 83690; 85025; 96374; 96375; 99284; J0131; J2270; J2405; Q9967

== ENCOUNTER 2022-08-31 15:54 | Emergency (ER) | payer BC, SELFPAY ==
--- NOTE | 2022-08-31 15:58 | ED.URI ---
HPI - URI/Sore Throat General Chief Complaint: Upper Respiratory Infection Stated Complaint: cold Time Seen by Provider: 08/31/22 15:59 Source: patient and RN notes reviewed History of Present Illness HPI Narrative: Patient is a 37-year-old female who presents to urgent care with complaints of a cough since Tuesday and now having a hoarse voice and sore throat. 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 Patient states that she has only taken 1 dose of DayQuil for her symptoms. Denies any fevers. No other acute complaints. No acute distress noted. Patient aware of the plan of care. Some parts of this dictation were generated by voice recognition software and may contain typographical and/or grammatical inaccuracies. Related Data Home Medications Medication Instructions Recorded Confirmed levothyroxine 25 mcg tablet 25 mcg PO DAILY 06/26/20 08/31/22 sertraline 100 mg tablet 200 mg PO DAILY 02/26/21 08/31/22 cholecalciferol (vitamin D3) 125 125 mcg PO DAILY 07/09/21 08/31/22 mcg (5,000 unit) capsule multivitamin 1 tablet PO DAILY 07/09/21 08/31/22 trazodone 50 mg tablet 50 mg PO QHS PRN per pt anxiety 07/09/21 08/31/22 venlafaxine 75 mg capsule,extended 75 mg PO DAILY 07/09/21 08/31/22 release 24 hr ozanimod 0.92 mg capsule (Zeposia) 0.92 mg PO DAILY 08/03/22 08/31/22 Allergies Allergy/AdvReac Type Severity Reaction Status Date / Time sumatriptan Allergy Intermediate Other Verified 08/31/22 16:01 rizatriptan [From [facility]] Allergy Mild SOB Verified 08/31/22 16:01 Review of Systems Review of Systems: CONSTITUTIONAL: Denies fever, chills, or sweats. Reports of fatigue EYES: Denies visual changes, redness, or discharge. ENT: Reports of sore throat, hoarse voice CARDIOVASCULAR: Denies chest pain, palpitations, or edema. RESPIRATORY: Reports cough without dyspnea GASTROINTESTINAL: Denies abdominal pain, nausea, vomiting, or diarrhea. GENITOURINARY: Denies dysuria or hematuria. SKIN: Denies rash or itching. MUSCULOSKELETAL: Denies back pain, joint pain, or myalgia. NEUROLOGIC: Denies headache, numbness, or weakness. All other systems reviewed are negative, except as documented in HPI. [facility] Past Medical History Medical History Anxiety 2012 Depression 2000 History of gestational diabetes History of hypothyroidism HPV in female 2009 Hypothyroid Migraine Multiple sclerosis Upper airway resistance syndrome Vaginal delivery x2 Surgical History Surgical History History of appendectomy 10/20/21 Family History Family History Mother Hypertension Cerebrovascular accident Social History Social History Smoking status: Never smoker Alcohol intake: never Substance use: never Additional living arrangements comments: Lives with her and two children. 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 There is no relevant family history pertinent to the patient complaint. Exam Narrative: GENERAL: This is a well-nourished, well-developed patient, in no apparent distress. HEAD: normocephalic, atraumatic. EYES: PERRL. Sclera clear/white. Vision is grossly intact. EARS: External ears normal, auditory canals clear and without drainage, TMs normal without perforation. Hearing grossly intact. NOSE: External nose normal with no obvious nasal discharge, nares without redness, no rhinorrhea. 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
[2022-08-31 16:22] VITALS: BP 110/79; PULSE 104; RESP 16; TEMP 36.2; O2SAT 100
== END 2022-08-31 16:17 | disposition home or self-care (01) ==
PROVIDERS: Emergency Provider Nurse Practitioner Family; PCP Internal Medicine
DX: B34.9 Viral infection, unspecified (principal); E03.9 Hypothyroidism, unspecified; G35 Multiple sclerosis; F41.9 Anxiety disorder, unspecified; F32.A Depression, unspecified
CPT/HCPCS: 87804; 99213; G0463

== ENCOUNTER 2025-04-11 07:44 | Outpatient (CLI) | payer OTHER, SELFPAY ==
--- NOTE | ~2025-04-11 | MM_ITS ---
EXAMINATION: MM screening rufus BI w [facility] HISTORY: Screening TECHNIQUE: Craniocaudal and mediolateral oblique 3-D tomosynthesis images were obtained and synthetic 2-D images were generated. CAD analysis was submitted and interpreted. COMPARISON: No prior mammogram is available for comparison at this institution. BREAST PARENCHYMAL COMPOSITION: Not Dense: The breasts are almost entirely fatty. FINDINGS: There is no evidence of suspicious mass, calcification, or architectural distortion to sugg est malignancy in either breast. There has been no suspicious interval change. IMPRESSION: 1. No mammographic evidence of malignancy. 2. Recommend routine screening mammography in one year. BI-RADS Category 1: Negative Reviewed, dictated and finalized at location B.
--- OUTSIDE RECORDS SUMMARY | 2025-04-11 07:47 | XMS_ITS | Encounter Summary ---
Author Organization [facility] Address [address] [place] [address] Care Team Providers Care Lock Installer Name Role Phone Shima Tavarez MD Primary Care Provider [phone] Encounter Details Date Type Department Care Team (Latest Contact Info) Description 03/13/2025 Results Follow-Up [facility] Neurology [address] [place] [address] Justus Sauer MD [address] [facility] [address] [place] [address] CBC WITH DIFFERENTIAL Social History Tobacco Use Types Packs/Day Years Used Date Smoking Tobacco: Never Smokeless Tobacco: Never Alcohol Use Standard Drinks/Week Comments Yes 0 (1 standard drink = 0.6 oz pur e alcohol) Comments No Sex and Gender Information Value Date Recorded Sex Assigned at Not on file Legal Sex Female 5:52 AM ANIMAL BEHAVIOURIST Gender Identity Not on file Sexual Orientation Not on file Occupation Industry Job Start Date Job End Date Not on file Not on file Not on file Not on file documented as of this encounter Plan of Treatment Upcoming Encounters Date Type Department Care Team (Late st Contact Info) Description 04/15/2025 Orders Only [facility] NEUROLOGY - [place] [id number] [facility] [address] [place] [address] Justus Sauer MD [address] [facility] [facility] [address] [place] [address] High risk medication use 08/14/2025 2:00 PM ANIMAL BEHAVIOURIST Office Visit [facility] Neurology [address] [place] [address] Justus Sauer MD [address] [place] [address] documented as of this encounter Visit Diagnoses Not on filedocumented in this encounter Care Teams Lock Installer Relationship Specialty Start Date End Date Shima Tavarez MD PCP - General Internal Medicine 10/07/22 documented as of this encounter
--- OUTSIDE RECORDS SUMMARY | 2025-04-11 07:47 | XMS_ITS | Clinical Summary ---
Author Organization [facility] Address [address] [place] [address] Care Team Providers Care Hiv Prevention Specialist Name Role Phone Mark Vasquez MD Primary Care Provider [phone] Source Comments [facility],non-owned Affiliates and Associated Physician Practices is amultiple site organization consisting of ambulatory clinics and hospital sitesin [place], [place], [place] and [place]. This disclosure is being madepursuant to the Care Everywhere program and may not contain all information available regarding this patient. Last updated 18.[facility] Allergies Active Allergy Reactions Criticality Noted Date Comments Sumatriptan Wheezing Medium 12/21/2016 Rizatriptan Shortness of Breath High 07/14/2020 Medications * Be aware that medications may not be up to date on this document. Alwaysverify current medications with the patient. levothyroxine (SYNTHROID) 25 MCG tablet Take 25 mcg by mouth daily before breakfast Active Vit-Fe Fumarate-FA ( VITAMIN) 28-0.8 MG tabletIndicatio ns: Take 1 tablet by mouth once daily Reasons: Active ibuprofen (MOTRIN) 600 MG tablet Take 1 (one) tablet by mouth every 6 hours as needed for Pain 30 tablet 1 1 Active Active Problems Problem Noted Date Diagnosed Date Encounter for planned induction of labor 021 Cystic fibrosis carrier, antepartum 09/10/2020 Overview (09/10/2020): has been given lab requisition for carrier screening. Assessment & Plan (11/26/2020 4:55 PM ROADSIDE MECHANIC): 's carrier testing was negative per patient, he just received results. Supervision of high-risk of young claudia skaggs 07/14/2020 Overview (07/14/2020): Dating: LMP c/w 1st trimester ultrasound at 9w4d w/CRL of 2.8cm, making EZ--> 01/18/21 summary: labs requested from Dr. Holloway, primary OB Vitamin D: 58, 06/08/20 Multiple sclerosis affecting , antepart um 07/14/2020 Overview (07/16/2020): Diagnosed in 2011. MRI [2018]: A solitary FLAIR hyperintensity in the right frontal periventricular white matter, presumably representing a demyelinating plaque given the clinical history, is unchanged. There is corresponding T1 hypointensity indicative of myelin vacuolization. No new plaques are identified. No enhancing lesions are identified. Last MRI: 08/2019. Follows with [facility] Neurology, last visit in care everywhere. Prior to was stable on Gilenya. Following serial CBCs with neurology, borderline lymphocytes. 1TM anatomy: unremarkable 2TM anatomy: Assessment & Plan (01/07/2021 10:01 AM CDT): Discontinued Fingolimod early in this . We do not have a copy of the MRI performed in 2019, but Gissell reports that there were no significant changes compared to the one in 2018. Experiencing some weakness, has not had any falls. Benefiting from physical therapy. Second-trimester anatomy completed with AGA growth identified thus far. Maternal recommendations: 1. Notify Neurologist and Neurosurgeon after delivery for immediate follow up and to resume medication regimen. 2. Alert Tv Production Assistant of any falls. Utilize cane as needed, evaluate home for fall risks. Continue PT given benefit noted. Assessment & Plan (11/26/2020 4:47 PM ROADSIDE MECHANIC): Discontinued Fingolimod early in this . We do not have a copy of the MRI performed in 2019, but Gissell reports that there were no significant changes compared to the one in 2018. Experiencing some weakness, has not had any falls. Benefiting from physical therapy. First-trimester anatomy survey was unremarkable. Second-trimester anatomy completed with AGA growth identified thus far. Maternal recommendations: 1. Notify Neurologist and Neurosurgeon of status and maintain follow- ups, encouraged again today to make follow up appointment soon for after delivery care and to resume medications. 2. Formal ultrasound for growth scheduled Tuesday. 3. Alert Tv Production Assistant of any falls. Utilize cane as needed, evaluate home for fall risks. Continue PT given benefit noted. Assessment & Plan (11/05/2020 4:29 PM ROADSIDE MECHANIC): Discontinued Fingolimod early in this . We do not have a copy of the MRI performed in 2019, but Gissell reports that there were no significant changes compared to the one in 2018. Experiencing some weakness, has not had any falls. First-trimester anatomy survey was unremarkable. Second-trimester anatomy completed with AGA growth. Maternal recommendations: 1. Notify Neurologist and Neurosurgeon of status and maintain follow- ups, encouraged to make follow up appointment soon for after delivery care and to resume medications. 2. Formal ultrasound report to follow. 3. Alert Tv Production Assistant of any falls. Utilize cane as needed, evaluate home for fall risks. Continue PT given benefit noted. Assessment & Plan (10/08/2020 4:29 PM ROADSIDE MECHANIC): Discontinued Fingolimod early in this . We do not have a copy of the MRI performed in 2019, but Gissell reports that there were no significant changes compared to the one in 2018. Experiencing some weakness, has not had any falls. First-trimester anatomy survey was unremarkable. Second-trimester anatomy completed today with AGA growth. Maternal Medicine recommendations: 1. Notify Neurologist and Neurosurgeon of status and maintain follow- ups. 2. Formal ultrasound report to follow. 3. Alert Tv Production Assistant of any falls. Utilize cane as needed, evaluate home for fall risks. Assessment & Plan (09/10/2020 10:48 AM ROADSIDE MECHANIC): Avoided significant complications in her 1st . Did not have a significant flare, which is reassuring. Discontinued Fingolimod early in this . We do not yet have a copy of the MRI performed in 2019, but Gissell reports that there were no significant changes compared to the one in 2018. First-trimester anatomy survey was unremarkable. Second-trimester anatomy is pending final report today, preliminary report is unremarkable and adequate growth. Maternal Medicine recommendations: 1. Notify Neurologist and Neurosurgeon of status and maintain follow- ups 2. Formal ultrasound report to follow 3. Alert Tv Production Assistant of any falls. Assessment & Plan (07/16/2020 11:19 AM CDT): Multiple sclerosis is often associated with unpredictable exacerbations. In some patients there is a period of time between the initial symptoms and the development of increasing disability. In other patients there is a progressive course towards disability. In , there is a tendency for remission; however there is increased frequency of exacerbations in the 1st 3-6 months AFTER childbirth. does not have an impact on the relapse rate after . has not been shown to have an affect on subsequent neurologic disability. Disease modifying therapies, such as beta interferon, glatiramer acetate or natalizumab are not recommended during . Avoided significant complications in her 1st . Did not have a significant flare, which is reassuring. Discontinued Fingolimod early in the . We do not yet have a copy of the MRI performed in 2019, but Gissell reports that there were no significant changes compared to the one in 2018. First-trimester anatomy survey performed today and was unremarkable. Gissell does not plan on so that she can resume medications . Maternal Medicine recommendations: 1. notify Neurologist and Neurosurgeon of status and maintain follow- ups 2. detailed 2nd trimester anatomy survey between 20 to 22 weeks Hypothyroid in , antepartum 07/14/2020 Overview (07/14/2020): Per PN record levothyroxine: 25 mcg Thyroid function 06/08/20: TSH: 1.59, free T4: 1.1 Assessment & Plan (01/07/2021 10:05 AM CDT): Managed by her primary Tv Production Assistant. She continues levothyroxine as prescribed by her. Assessment & Plan (11/26/2020 4:49 PM ROADSIDE MECHANIC): Primary Tv Production Assistant following and collecting values, patient reports normal results from 11/14 and no adjustments were made to her levothyroxine dose. Assessment & Plan (11/05/2020 4:26 PM ROADSIDE MECHANIC): Repeat thyroid testing appropriate 09/02, TSH: 1.59. free T4 not collected. Reports evaluation again in September was normal, no labs available for review. Continues levothyroxine 25mcg daily. AGA growth today. Maternal recommendations: 1. Check thyroid studies once a trimester, continue levothyroxine as prescribed. 2. Serial growth ultrasounds. Assessment & Plan (10/08/2020 3:49 PM ROADSIDE MECHANIC): Repeat thyroid testing appropriate 09/02, TSH: 1.59. free T4 not collected. Reports evaluation again in September was normal, no labs available for review. Continues levothyroxine 25mcg daily. Maternal Medicine recommendations: 1. Check thyroid studies once a trimester, continue levothyroxine as prescribed. 2. Serial growth ultrasounds. Assessment & Plan (09/10/2020 10:52 AM ROADSIDE MECHANIC): Repeat thyroid testing appropriate 09/02, TSH: 1.59. free T4 not collected. Continues levothyroxine 25mcg daily. Maternal Medicine recommendations: 1. Check thyroid studies once a trimester, continue levothyroxine as prescribed. Assessment & Plan (07/16/2020 11:15 AM CDT): Reports that she will have her thyroid function testing repeated within the next few weeks. Maternal Medicine recommendations: 1. check thyroid studies once a trimester Gestational diabetes mellitus (GDM) affecting pr egnancy 07/14/2020 Overview (07/14/2020): Reports first was controlled with diet Assessment & Plan (01/07/2021 10:04 AM CDT): Glucoses are nearly all at goal. Excellent with diet and log of data. Reassuring testing earlier this week. AGA growth 4/5. Maternal recommendations: 1. Encouraged to check glucose 4x daily, fasting and one hour after each meal. 2. Praised her strong dietary efforts. 3. Close contact with our CDE, on at least a weekly basis. 4. Continue Levemir 4 units in the morning and 10 units in the evening. Continue 6 units of Novolog with dinner. 5. Will need insulin drip in labor. Instructed to do insulin regimen as prescribed the day of her IOL. 6. Recommend twice daily kick counts, seek OB evaluation with any reduced movement. 7. Reviewed treatment of hypoglycemia again today, and to always carry quick acting sugar with her, report to us any episodes of hypoglycemia. Call our after hours number triage or your Tv Production Assistant if you need to treat hypoglycemia or fasting hyperglycemia >100. Encouraged compliance with all snacks. 8. testing as twice weekly NST and weekly BPP. Second NST tomorrow. 9. Serial growth ultrasounds with final assessment around 37-38 weeks for delivery mode planning. 10. Recommend 2 hour GTT at 4 weeks PP to review at 6 weeks PP. And continued follow up annually with PCP due to increased risk of T2 DM. Assessment & Plan (11/26/2020 5:10 PM ROADSIDE MECHANIC): Glucoses are nearly all at goal. Excellent with diet and log of data. Compliant with insulin regimen. 1 episode of hypoglycemia since last visit, missed morning snack. Reassuring testing today. Maternal recommendations: 1. Encouraged to check glucose 4x daily, fasting and one hour after each meal. 2. Praised her strong dietary efforts. 3. Close contact with our CDE, on at least a weekly basis. 4. Continue Levemir 4 units in the morning and 10 units in the evening. Continue 4 units of Novolog with dinner. 5. Recommend twice daily kick counts, seek OB evaluation with any reduced movement. 6. Reviewed treatment of hypoglycemia again today, and to always carry quick acting sugar with her, report to us any episodes of hypoglycemia. Call our after hours number triage or your Tv Production Assistant if you need to treat hypoglycemia. Encouraged compliance with all snacks. 7. testing began today for twice weekly NST and weekly BPP as outlined with Dr. Sharp previously. 8. Serial growth ultrasounds with final assessment around 37-38 weeks for delivery mode planning. 9. Recommend 2 hour GTT at 4 weeks PP to review at 6 weeks PP. Assessment & Plan (11/05/2020 4:39 PM ROADSIDE MECHANIC): Glucoses are nearly all at goal. Compliant with insulin regimen. Following great diet. AGA growth identified today. Maternal recommendations: 1. Encouraged to check glucose 4x daily, fasting and one hour after each meal. 2. Praised her strong dietary efforts. 3. Close contact with our CDE, on at least a weekly basis. 4. Continue Levemir 4 units in the morning and 10 units in the evening. Continue 4 units of Novolog with dinner. 5. Recommend twice daily kick counts, seek OB evaluation with any reduced movement. 6. Review of preeclampsia warnings in detail again today. 7. Reviewed treatment of hypoglycemia and to always carry quick acting sugar with her, report to us any episodes of hypoglycemia. After hours triage number given previously. 8. Reviewed testing to begin at 32 weeks with twice weekly NST, scheduled to start at our office in 3 weeks. Discussed she may complete this with her primary OB or in our office. 9. Serial growth ultrasounds with final assessment around 37-38 weeks for delivery mode planning. 10. Recommend 2 hour GTT at 4 weeks PP to review at 6 weeks PP. Assessment & Plan (10/08/2020 4:09 PM ROADSIDE MECHANIC): Recent GCT of 178. Did not complete GTT. Glucose checks revealed GDM. Began Levemir, some persistent fasting hyperglycemia and rare post prandial hyperglycemia. Following strict diet, recently adding more carbohydrates to regimen per our recommendations. 3+ ketones today, random glucose 97. Denies nausea and vomiting. AGA growth identified today. Maternal recommendations: 1. Encouraged to check glucose 4x daily, fasting and one hour after each meal. 2. Parameters for glucose values reviewed. I praised her strong efforts thus far in diet, encouraged adding more carbohydrate and consideration of bedtime snack, especially given ketonuria without hypoglycemia or nausea and vomiting. Encouraged adequate hydration. Reviewed pertinence of glucose for brain development. 3. Close contact with our CDE, on at least a weekly basis. 4. Increase Levemir to 10 units at bedtime. 5. Recommend twice daily kick counts, seek OB evaluation with any reduced movement. 6. Review of preeclampsia warnings in detail today. 7. Reviewed treatment of hypoglycemia and to always carry quick acting sugar with her, report to us any episodes of hypoglycemia. After hours triage number reviewed also. 8. Reviewed testing to begin at 32 weeks with twice weekly NST and weekly BPP. Discussed she may complete this with her primary OB or in our office. 9. Serial growth ultrasounds with final assessment around 37-38 weeks for delivery mode planning. 10. Recommend 2 hour GTT at 4 weeks PP to review at 6 weeks PP. Assessment & Plan (09/10/2020 11:02 AM ROADSIDE MECHANIC): Recent GCT of 178. Did not complete GTT. Primary Tv Production Assistant recommended checking glucoses 4x daily, began yesterday. Strong knowledge in dietary changes to implement with prior history of GDM. Motivated to follow diet, was controlled with diet in previous . AGA growth identified today. Maternal recommendations: 1. Encouraged to check glucose 4x daily, fasting and one hour after each meal. 2. Parameters for glucose values reviewed. 3. Close contact with our CDE, on at least a weekly basis; including in the coming weeks to validate diagnosis or assist with plan of care if glucoses are all within goal. 4. Recommend twice daily kick counts--explained. 5. Discussed that an official diagnosis of gestational diabetes has not been made, that will be determined based on how glucoses look in the upcoming weeks. 6. Met with CDE today for dietary education and glucose monitoring information. Anxiety and depression 07/14/2020 Overview (07/14/2020): Care everywhere review shows medication use of: Effexor, sertraline, trazodone Assessment & Plan (01/07/2021 10:01 AM CDT): Mood appropriate with some worry regarding delivery and status. I encouraged her to re-start her sertraline immediately following delivery. Assessment & Plan (09/10/2020 10:53 AM ROADSIDE MECHANIC): Mood is appropriate today. Denies exacerbation of anxiety or depression. No current medications. Maternal Medicine recommendations: 1. Encouraged to establish care with counselor, reviewed online support that is available to her especially in light of the pandemic. 2. Reassess mood at visits. 3. If Zoloft is resumed, this medication should be communicated to the Telephone Order Clerk, as a would benefit from increased supervision in the first 48 hours of life. Assessment & Plan (07/16/2020 11:23 AM CDT): Mood appears appropriate today. Remains at risk for mood deterioration in and . We discussed the safety of buspirone as well as sertraline in . Buspar [Buspirone]: [place] FDA class B. Limited data. No increased risk of congenital anomalies. It is excreted in breast milk. No strong contraindication to . Sertraline [Zoloft]: [place] FDA category not assigned. Animal studies have failed to show evidence of teratogenicity; however, there has been evidence of delayed ossification. There may be potential for drug discontinuation syndrome in the . Some experts suggest that newborns be observed for the first 48 hours of life after , if there has been exposure late in the 3rd trimester. SSRIs, in general, may increase the risk of persistent pulmonary hypertension of the . This drug is considered one of the preferred antidepressants during breast- feeding. Maternal Medicine recommendations: 1. Maintain close follow-up with Psychiatrist and mental health counselor 2. Reassess mood at visits 3. If Zoloft is resumed, this medication should be communicated to the Telephone Order Clerk, as a [place] would benefit from increased supervision in the first 48 hours of life Migraines 07/14/2020 Overview (07/14/2020): Follows with neurology at [facility], recently treated with riboflavin, magnesium, tizanidine Assessment & Plan (11/26/2020 4:48 PM ROADSIDE MECHANIC): Remain improved with Riboflavin Normotensive today. Maternal recommendations: 1. Continue Riboflavin 400mg daily. Seek obstetrical evaluation if migraine not alleviated with typical intervention. We discussed preeclampsia warnings in detail today. Assessment & Plan (11/05/2020 4:30 PM ROADSIDE MECHANIC): Remain improved with Riboflavin Normotensive today. Maternal recommendations: 1. Continue Riboflavin 400mg daily. Seek obstetrical evaluation if migraine not alleviated with typical intervention. Assessment & Plan (10/08/2020 4:25 PM ROADSIDE MECHANIC): Some improvement with Riboflavin. Has connected with Neurology at [facility] regarding migraines. Normotensive today. Maternal recommendations: 1. Continue Riboflavin 400mg daily. Seek obstetrical evaluation if migraine not alleviated with typical intervention. 2. I encouraged her to reach out to neurology with worsening migraines, and consider adding magnesium oxide to regimen. Assessment & Plan (09/10/2020 11:29 AM ROADSIDE MECHANIC): Problematic, has neurology at [facility]. Currently treats with Tylenol and Benadryl. Normotensive today. Maternal recommendations: 1. Start Riboflavin 400mg daily. Alert us if not helpful. Seek obstetrical evaluation if migraine not alleviated with typical intervention. 2. I encouraged Gissell Haq to follow up with neurology also regarding return of migraines for their input on treatment. Resolved Problems Problem Noted Date Diagnosed Date Resolved Date Uterine contractions during 01/06/2021 01/13/2021 Depression screening-Initial 12/29/2020 12/29/2020 01/13/2021 Overview (12/29/2020): 12/29/2020 Gissell Haq was screened for depression using the [place] Depression Scale (EPDS) at her [facility] initial evaluation on 12/29/2020. Her initial score at baseline was 7. Based off of her score of 7, Gissell does not warrant follow up. Patient will continue to be screened throughout , at intervals no closer than two weeks, for continued surveillance and early identification of depression until delivery. Patient reports mental health history. Diagnoses include depression, depression, and anxiety. abnormality in 12/22/2020 01/14/2021 Overview (12/31/2020): Images from the original note were not included. [facility] PATIENT--PLEASE CALL [phone] (ex 2) IF TRIAGED OR ADMITTED Care Provider: Dr. Fermín Holloway/[facility] (Co-Management for GDM and Multiple Sclerosis) [facility] [place] consultants involved: Nurse coordinator-Get Downing RN; MFM-Dr. Eisenberg; Pediatric Cardiology-Dr. Rothman Diagnosis: Possible coarctation of the aorta Per echo 12/22/2020-Mild transverse aortic arch hypoplasia, moderate right heart dilatation; cannot rule out coarctation of aorta in setting of patent ductus arteriosus. Planned surveillance: Continue routine OB care with Dr. Holloway and testing (twice weekly NST/weekly BPP) with [facility]; Released from [facility] after initial visit on 12/29/2020 Delivery location: [facility] Delivery mode: No contraindication to vaginal delivery; if malpresentation then no contraindication to external cephalic version Desired Delivery GA: [id number] scheduled for January 11 at 8:00 pm- recommend Anesthesia consultation upon admission follow up: Per pediatric cardiology, Delivery Site: [place] Lines: No PGE: No Prostaglandins at delivery Echo: Obtain at ~48hrs of life. Would NOT perform in first 24hrs of life as visualization of aortic arch is most ideal when PDA is tiny or closed - Please obtain right upper extremity BP and lower extremity BP regularly (at least q12h) after to monitor for any discrepancies - please call Court Commissioner metal control worker at [facility] if any concerns for poor systemic perfusion (BP differential, poor pulses, etc) and also after echocardiogram to discuss disposition regarding whether transfer to [facility] is necessary Telephone Order Clerk: Dr. Rolando Jalloh ([facility]-[place], [place]) Autopsy indicated: Genetics note: TBD postnatally if indicated Double Needle Operator Concerns: 12/29/2020-Patient with mental health history-anxiety and depression-plans to resume medication after delivery Care plan based on evaluation and is subject to change based on assessment. See Images or Cardiac under Chart Review for US/ ECHO/ MRI reports. Assessment & Plan (01/07/2021 9:58 AM CDT): Asymmetry of the cardiac ventricles Based on the recent echocardiogam the consulting Dinkey Operator Slag recommended delivery at a tertiary care center, such as [facility] for evaluation. evaluation will used to confirm or exclude the suspicions. The will be evaluated to see if special care nursery or rooming in within the mother is appropriate. If there are confirmed cardiac concerns then genetic evaluation may be warranted. PLANS & RECOMMENDATIONS per Dr. Eisenberg: Consultation: Anesthesia-at the time of encounter for induction of labor Genetics Plan: TBD postnatally if indicated testing: Continue twice weekly testing with the [facility] Timing of delivery: IOL scheduled for Thursday 01/11 at [facility]. Delivery location: [facility] Delivery mode: no contraindication to vaginal delivery; if malpresentation then no contraindication to external cephalic version Special concerns / Peripartum risks: Will likely need an insulin drip in labor; penicillin in labor; increased surveillance for poor transition due to maternal Zoloft use follow up: echocardiogram IBS (irritable bowel syndrome) 07/14/2020 07/16/2020 UARS (upper airway resistance syndrome) 07/14/2020 07/16/2020 Overview (07/14/2020): No current indication for CPAP at night Immunizations Immunization Administration Dates Next Due INFLUENZA VACCINE, CELL CULT URE, QUADR. (FLUCELVAX QUADRIVALENT; 6MO+) (CCIIV4) 07/05/2020 MMR 01/13/2021() TDAP (7yrs+) 01/13/2021(Deferred: See Comments - got on 12/13/20),12/13/2020 Family History Medical History Relation Name Comments CVA Mother Hypertension Mother Relation Name Status Comments Father Alive Maternal Grandfather Maternal Grandmother Mother Alive Paternal Grandfather Paternal Grandmother Social History Tobacco Use Types Packs/Day Years Used Date Smoking Tobacco: Never Smokeless Tobacco: Never Alcohol Use Standard Drinks/Week Comments Not Currently 0 (1 standard drink = 0.6 oz pur e alcohol) Comments No Sex and Gender Information Value Date Recorded Sex Assigned at Not on file Legal Sex Female 9:30 AM CDT Gender Identity Not on file Sexual Orientation Not on file Last Filed Vital Signs Vital Sign Reading Time Taken Comments Blood Pressure 118/78 01/14/2021 7:35 AM CDT Pulse 70 01/14/2021 7:35 AM CDT Temperature 36.7 C (98.1 F) 01/14/2021 7:35 AM CDT Respiratory Rate 18 01/14/2021 7:35 AM CDT Oxygen Saturation 100% 01/14/2021 7:35 AM CDT Inhaled Oxygen Concentration - - Weight 78 kg (172 lb) 01/11/2021 8:18 PM CDT Height 160 cm (5' 3) 01/11/2021 8:18 PM CDT Body Mass Index 30.47 01/11/2021 8:18 PM CDT Plan of Treatment Health Maintenance Due Date Last Done Comments HIV SCREENING 2002 HEPATITIS C SCREENING 01/23/2005 HEPATITIS B VACCINE (1 of 3 - 19+ 3-dose series) 2006 HPV VACCINE (1 - 3-dose SCDM series) 2014 COVID-19 VACCINE ( season) 2024 DEPRESSION SCREENING 09/26/2024 INFLUENZA VACCINE (#1) 2025 , 07/05/2020, 06/26/2019, Additional history exists DTAP/TDAP/TD VACCINES (2 - Td or Tdap) 12/13/2030 12/13/2020 ZOSTER VACCINE (1 of 2) 2037 HIB VACCINE Aged Out No longer eligi ble based on patient's age to complete this topic MENINGOCOCCAL (Group B) VACCINE SHARED DECISION-MAKING Aged Out No longer eligible based on patient's age to complete this topic MENINGOCOCCAL GROUPS A/C/Y/W VACCINE Aged Out No longer eligible based on patient's age to complete this topic PNEUMOCOCCAL VACCINE Aged Out No long er eligible based on patient's age to complete this topic Insurance [facility] Advance Directives * Full Code (Latest Code Status on File) Date Activated Date Inactivated Comments 01/11/2021 8:19 PM 01/14/2021 12:56 PM * Full Code Date Activated Date Inactivated Comments 01/06/2021 2:08 PM 01/06/2021 6:44 PM Care Teams Hiv Prevention Specialist Relationship Specialty Start Date End Date Mark Vasquez MD [address] [place] [address] PCP - General 01/16/21
--- OUTSIDE RECORDS SUMMARY | 2025-04-11 07:47 | XMS_ITS | Encounter Summary ---
Author Organization [facility] Address [address] [place] [address] Care Team Providers Care Medical Staff Director Name Role Phone Shima Tavarez MD Primary Care Provider +1- [phone] Encounter Details Date Type Department Care Team (Late Contact Info) Description 01/23/2021 Specialty Pharmacy [facility] - [address] [place] [address] Zackery Clifton RN Social History Tobacco Use Types Packs/Day Years Used Date Smoking Tobacco: Never Smokeless Tobacco: Never Alcohol Use Standard Drinks/Week Comments Yes 0 (1 standard drink = 0.6 oz pur e alcohol) Comments No Sex and Gender Information Value Date Recorded Sex Assigned at Not on file Legal Sex Female 5:52 AM OFFICE LEAD Gender Identity Not on file Sexual Orientation Not on file Occupation Industry Job Start Date Job End Date Not on file Not on file Not on file Not on file documented as of this encounter Plan of Treatment Upcoming Encounters Date Type Department Care Team (Late Contact Info) Description 04/15/[address] [facility] - [place] [facility] - [address] [facility] [address] [place] [address] Justus Sauer MD [address] [facility] [address] [address] High risk medication use 08/14/2025 2:00 PM OFFICE LEAD Office Visit [facility] [address] [facility] [address] [place] [address] Justus Sauer MD [address] [address] documented as of this encounter Visit Diagnoses Not on filedocumented in this encounter Care Teams Medical Staff Director Relationship Specialty Start Date End Date Shima Tavarez MD PCP - General Internal Medicine 10/07/22 documented as of this encounter
--- OUTSIDE RECORDS SUMMARY | 2025-04-11 07:47 | XMS_ITS | Clinical Summary ---
Author Organization [employer] [facility] on Address [address] [place] [address] Phone Care Team Providers Care Demonstrator Knitting Name Role Phone Shima Tavarez MD Primary Care Provider [phone]- [phone] Allergies Active Allergy Reactions Criticality Noted Date Comments Rizatriptan Unknown 10/31/2015 Sumatriptan Succinate Shortness of Breath/Wheezing High 12/09/2010 Medications multivitamin (DAILY-SHAWNEE) tablet Take 1 Tablet by mouth daily. Active ibuprofen (MOTRIN) 200 mg tablet Take 200 mg by mouth every 6 hours as needed for Pain, Mild. Active sertraline (ZOLOFT) 100 mg tablet Take 200 mg by mouth daily. Active diphenhydrAMIN E (BENADRYL) 25 mg tablet Take 25 mg by mouth every 6 hours as needed for Allergies. 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 Active traZODone (DESYREL) 50 mg tablet 2 Tablets daily at bedtime. 08/11/20 21 Active venlafaxine (EFFEXOR XR) 150 mg Extended Release 24 hour capsule Take 2 Capsules by mouth daily. 08/11/20 21 Active predniSONE (DELTASONE) 20 mg tablet Take 1 Tablet (20 mg) by mouth see administration instructions. Take #3 tablets po qam for 2 days, then #2 tablets po qam for 2 days and #1 tablet po qam for 2 days. 12 Tablet 05/06/20 23 Active Additional Information Patient not taking.Reported on 08/02/2023 ARIPiprazole (ABILIFY) 5 mg tablet Take 5 mg by mouth daily in the morning. 07/22/20 24 Active hydrOXYzine HCL (ATARAX) 25 mg tablet Take 1 Tablet by mouth 2 times daily. 07/30/20 24 Active cholecalcifero l, vitamin D3, (Vitamin D3) 5,000 unit Take 400 Units by mouth daily. Active baclofen (LIORESAL) 10 mg tabletIndicati ons:MS (multiple sclerosis) (CMS/HCC) Take 1 Tablet (10 mg) by mouth 2 times daily as needed for Pain (Muscle spasm). 60 Tablet 1 02/02/20 25 Active ozanimod (Zeposia) 0.92 mg CapsuleIndicat ions:MS (multiple sclerosis) (CMS/HCC) TAKE 1 CAPSULE BY MOUTH 1 TIME A DAY. 90 Capsule 3 03/16/20 25 Active ozanimod (Zeposia) 0.92 mg CapsuleIndicat ions:MS (multiple sclerosis) (CMS/HCC) TAKE 1 CAPSULE BY MOUTH 1 TIME A DAY. 90 Capsule 3 09/28/19 25 025 Discontin ued(Reord er) Active Problems Patient Care Coordination No te Formatting of this note is d ifferent from the original. 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 Aubagio 11/2012- 10/2013- attempts 3. Plegridy: 03/2015 - 07/2015 4. Gilenya 04/21/16- present 4. Tecfidera: 01/01/2016 - 01/19/2016 (GI upset) 5. Orion SRF sent 02/24/16 RLS (restless legs syndrome) 04/07/2012 Upper airway resistance syndrome 04/07/2012 Overview (04/07/2012): Sleep study in november Iron deficiency anemia 04/07/2012 Overview (04/07/2012): On iron supplement Family history of fibromuscular dysplasia 2011 Overview (11/17/2011): mother Depression 12/09/2010 Migraine headache 12/09/2010 Resolved Problems Problem Noted Date Diagnosed Date Resolved Date SROM 0400, hxGDMA1, GBS+(pcn ), MS (no meds), B+ 02/02/2015 02/02/2015 Encounters Date Type Department Care Team Description 03/28/2025 Telephone [facility] Neu[facility] [address] [place] [address] Justus Sauer MD Zeposia PA (for [facility]) 03/19/2025 External Device Data STL ABSTRACTION Provider, Abstract 03/14/2025 Refill [facility] Neurology [address] [place] [address] Justus Sauer MD MS (multiple sclerosis) ([facility]) 03/13/2025 External Device Data STL ABSTRACTION Provider, Abstract 03/13/2025 Results Follow-Up [facility] Neurology [address] [place] [address] Justus Sauer MD CBC WITH DIFFERENTIAL 02/19/2025 External Device Data STL ABSTRACTION Provider, Abstract 02/14/2025 External Device Data STL ABSTRACTION Provider, Abstract 02/13/2025 External Device Data STL ABSTRACTION Provider, Abstract 02/12/2025 Orders Only [facility] Neurology [address] [facility] [address] [place] [address] Justus Sauer MD Monocytosis (Primary Dx) 02/12/2025 Orders Only [facility] Neurology [address] [facility] [address] [place] [address] Desmond Hale MD Therapeutic drug monitoring (Primary Dx); High risk medication use 02/01/2025 Orders Only [facility] Neurology [address] [facility] [address] [place] [address] Justus Sauer MD MS (multiple sclerosis) ([facility]) (Primary Dx) 01/21/2025 Orders Only [facility] NE[facility]OLOG[facility] - [facility] [address] [facility] [address] [place] [address] Justus Sauer MD High risk medication use from Last 3 Months Immunizations Immunization Administration Dates Next Due (ADACEL/BOOSTRIX)(10 YR UP) TDAP VACCINE, 0.5ML, IM 01/01/2015 (GARDASIL)(9-45 YRS) HUMAN P APILLOMAVIRUS VACCINE, TYPES 6, 11, 16, 18, QUADRIVALENT (4VHPV), 3 DOSE, IM 10/17/2012,06/06/2012,04/18/2012 INFLUENZA VACCINE QUADRIVALE NT 3 YR UP PF IM 07/12/2018 Influenza Vaccine Tri Rcmb 18+ PF IM 07/31/2015 Family History Medical History Relation Name Comments Healthy Brother 1 Healthy Brother 2 Healthy Daughter vickie Stroke Maternal Grandfather Cancer Maternal Grandmother Hypertension Mother Stroke Mother Cancer Paternal Grandfather Healthy Sister 1 Healthy Sister 2 Breast Cancer Neg Hx Colon Cancer Neg Hx Ovarian Cancer Neg Hx Relation Name Status Comments Brother 1 Alive Brother 2 Alive Daughter vickie Alive Father Alive Maternal Grandfather Maternal Grandmother Mother Alive Paternal Grandfather Paternal Grandmother Alive Sister 1 Alive Sister 2 Alive Social History Tobacco Use Types Packs/Day Years Used Date Smoking Tobacco: Never Smokeless Tobacco: Never Tobacco Cessation:Counseling Given: Not Answered Alcohol Use Standard Drinks/Week Comments Yes 0 (1 standard drink = 0.6 oz pur e alcohol) Comments No Sex and Gender Information Value Date Recorded Sex Assigned at Not on file Legal Sex Female 5:52 AM FAILURE ANALYSIS ENGINEER Gender Identity Not on file Sexual Orientation Not on file Occupation Industry Job Start Date Job End Date Not on file Not on file Not on file Not on file Last Filed Vital Signs Vital Sign Reading Time Taken Comments Blood Pressure 106/70 08/10/2024 11:29 AM FAILURE ANALYSIS ENGINEER Pulse 97 08/10/2024 11:29 AM FAILURE ANALYSIS ENGINEER Temperature 36.9 C (98.4 F) 08/06/2016 9:58 AM FAILURE ANALYSIS ENGINEER Respiratory Rate 20 09/23/2017 10:17 AM FAILURE ANALYSIS ENGINEER Oxygen Saturation 97% 08/10/2024 11:29 AM FAILURE ANALYSIS ENGINEER Inhaled Oxygen Concentration - - Weight 89.4 kg (197 lb) 08/10/2024 11:29 AM FAILURE ANALYSIS ENGINEER Height 160 cm (5' 3) 08/10/2024 11:29 AM FAILURE ANALYSIS ENGINEER Body Mass Index 34.9 08/10/2024 11:29 AM FAILURE ANALYSIS ENGINEER Plan of Treatment Upcoming Encounters Date Type Department Care Team (Late st Contact Info) Description 04/15/2025 Orders Only [facility] - [facility] [address] [address] [address] Justus Sauer MD [address] [address] High risk medication use 08/14/2025 2:00 PM FAILURE ANALYSIS ENGINEER Office Visit [address] [address] Justus Sauer MD [address] [address] Health Maintenance Due Date Last Done Comments Pre-Diabetes and Diabetes Screening 1987 HEPATITIS B VACCINES (1 of 3 - 19+ 3-dose series) 2006 PAP SMEAR 04/07/2021 04/07/2018, 03/26, 09/24/2016, Additional history exists CERVICAL CANCER SCREENING 04/07/2023 HPV/Cotest (21-29) 04/07/2023 04/07/2018, 1 , 09/08/2015, Additional history exists HPV/Cotest (30-65) 04/07/2023 04/07/2018, 1 , 09/08/2015, Additional history exists INFLUENZA VACCINE (#1) 2025 2, 07/05/2020, 06/26/2019, Additional history exists DTAP/TDAP/TD VACCINES (4 - T d or Tdap) 12/13/2030 12/13/2020, 01/01/2015, 07/10/2003 HPV VACCINES Completed 10/17/2012, 05/27, 04/18/2012 Procedures Procedure Name Priority Date/Time Associated Diagnosis Comments CBC WITH DIFFERENTIAL Routine 03/11/2025 1:06 PM CDT Monocytosis CBC WITH DIFFERENTIAL Routine 02/09/2025 9:23 AM CDT High risk medication use CERV/VAG CYTO SCREEN PAP RLFX HPV Routine 04/07/2018 2:14 PM CDT Well woman exam from Last 3 Months or Most Recently Relevant to Health Maintenance Results * (ABNORMAL) CBC WITH DIFFERENTIAL (03/11/2025 1:06 PM CDT) Only the most recent of2 resultswithin the time period is included. WBC 7.4 3.8 - 10.8 Thousand/u L [facility] RBC 4.19 3.80 - 5.10 Million/uL [facility] HEMOGLOBIN 13.0 11.7 - 15.5 g/dL [facility] HEMATOCRIT 39.5 35.0 - 45.0 % [facility] MCV 94.3 80.0 - 100.0 fL [facility] MCH 31.0 27.0 - 33.0 pg [facility] MCHC 32.9 32.0 - 36.0 g/dL [facility] Comment: For adults, a slight decrease in the calculated MCHC value (in the range of 30 to 32 g/dL) is most likely not clinically significant; however, it should be interpreted with caution in correlation with other red cell parameters and the patient's clinical condition. RDW 13.2 11.0 - 15.0 % [facility] PLATELETS 253 140 - 400 Thousand/u L [facility] MPV 11.3 7.5 - 12.5 fL [facility] NEUTROPHIL ABSOLUTE 6,320 1,500 - 7,800 cells/uL [facility] LYMPHOCYTE ABSOLUTE 340(L) 850 - 3,900 cells/uL [facility] MONOCYTE ABSOLUTE 525 200 - 950 cells/uL [facility] EOSINOPHIL ABSOLUTE 192 15 - 500 cells/uL [facility] BASOPHILS ABSOLUTE 22 0 - 200 cells/uL [facility] NEUTROPHIL 85.4 % [facility] LYMPHOCYTES 4.6 % [facility] MONOCYTE 7.1 % [facility] EOSINOPHILS 2.6 % [facility] BASOPHILS 0.3 % [facility] Comment: Test Performed at: [facility] [address] [place] [address] Pia Hicks MD Blood 03/11/2025 1:06 PM CDT 03/11/2025 1:06 PM CDT Justus Sauer MD HEMATOLOGY ORDERABLES Final Result [facility] [phone] [facility] [address] [address] [place] [address] * CERV/VAG CYTO SCREEN PAP RLFX HPV (04/07/2018 2:14 PM CDT) CLINICAL INFORMATION SCREENING 04/12/2018 7:49 PM CDT [facility] LAST MENSTRUAL PERIOD SEE COMMENT 04/12/2018 7:49 PM CDT [facility] Comment:INFORMATION NOT PROV IDED PREV PAP: SEE COMMENT 04/12/2018 7:49 PM CDT [facility] Comment:[id number] NIL PREV BX: SEE COMMENT 04/12/2018 7:49 PM CDT [facility] Comment:INFORMATION NOT PROV IDED SOURCE Endocervix 04/12/2018 7:49 PM CDT [facility] ADEQUACY: SEE COMMENT 04/12/2018 7:49 PM CDT [facility] Comment: Satisfactory for evaluation. Endocervical/transformation zone component present. Age and/or menstrual status not provided PAP INTERP SEE COMMENT 04/12/2018 7:49 PM CDT [facility] Comment:Negative for intraep ithelial lesion or malignancy. COMMENT SEE COMMENT 04/12/2018 7:49 PM CDT [facility] Comment: This Pap test has been evaluated with computer assisted technology. COMPUTER COMPOSITOR: SEE COMMENT 2017 7:49 PM CDT [facility] Comment: BES, CT(ASCP) CT screening location: [place] [address] [place] [address] EXPLANATORY NOTE SEE COMMENT 018 7:49 PM CDT [facility] Comment: EXPLANATORY NOTE: The Pap is a screening test for cervical cancer. It is not a diagnostic test and is subject to false negative and false positive results. It is most reliable when a satisfactory sample, regularly obtained, is submitted with relevant clinical findings and history, and when the Pap result is evaluated along with historic and current clinical information. Genital SWAB OF ENDOCERVIX / Unknown Collection / Unknown 04/07/2018 2:14 PM CDT 04/07/2018 4:09 PM CDT Narrative [facility] - 04/12/2018 7:49 PM CDT Performing Organization Information: Site ID: Name: [facility] Address: [facility] [address] [place] [address] Director: Pia Hicks us Megha Finch DO PATHOLOGY/CYTOLOGY ORDERABLES Fi nal Result [facility] from Last 3 Months or Most Recently Relevant to Health Maintenance Insurance [facility] BLUE ACCESS CHOICE RX [facility] [employer] Advance Directives For more information, please contact: [phone] * Full Code (Latest Code Status on File) Date Activated Date Inactivated Comments 02/02/2015 8:10 PM 02/04/2015 1:59 PM * Full Code Date Activated Date Inactivated Comments 02/02/2015 5:21 AM 02/02/2015 8:10 PM * Full Code Date Activated Date Inactivated Comments 02/01/2015 2:24 PM 02/01/2015 5:03 PM * Full Code Date Activated Date Inactivated Comments 12/06/2014 6:18 AM 12/06/2014 10:46 AM Care Teams Demonstrator Knitting Relationship Specialty Start Date End Date Shima Tavarez MD PCP - General Internal Medicine 10/07/22
== END 2025-04-11 07:45 | disposition home or self-care (01) ==
LOC: ANHIMG 07:45
PROVIDERS: PCP Physician Assistant; Visit Provider Obstetrics & Gynecology
DX: Z12.31 Encounter for screening mammogram for malignant neoplasm of breast (principal); Z80.3 Family history of malignant neoplasm of breast
CPT/HCPCS: 77063; 77067